=== PATIENT | male | born 1985 | race Caucasian/White ===

== ENCOUNTER 2019-12-14 12:13 | Emergency (ER) | payer SELFPAY ==
[2019-12-14] MEDS ORDERED: KETOROLAC TROMETHAMINE INJ 30 MG/ML VIAL IM ONE (12:32)
[2019-12-14] MEDS ORDERED: CYCLOBENZAPRINE HCL 10 MG TAB PO ONE (12:32)
[2019-12-14 12:33] VITALS: O2SAT 97
[2019-12-14] MEDS ORDERED: predniSONE 20 MG TAB PO ONE (12:33)
--- NOTE | 2019-12-14 13:07 | ED.PDOC ---
History of Present Illness - General Chief Complaint: Back Pain or Injury Stated Complaint: Lower mid back pain Time Seen by Provider: 12/14/19 12:14 Source: patient Exam Limitations: no limitations - History of Present Illness Initial Comments: The patient is a 34-year-old male presented emergency room secondary toAcute onset low back pain starting this morning after he bent over to pick something up. He was not picking up anything heavy. He did not fall. He has had this problem once in the past. No incontinence. No loss of sensation or strength. Pain is adjacent more to the right of L4-L5. There is obvious palpable muscle spasm. No obvious step-off. No evidence of trauma. No evidence of any new deformity. Timing/Duration: 4-6 hours Severity: severe Improving Factors: immobilization Worsening Factors: movement Associated Symptoms: denies symptoms Allergies/Adverse Reactions: Allergies NO KNOWN ALLERGY Allergy (Verified 12/14/19 12:33) Home Medications: Ambulatory Orders Cyclobenzaprine HCl [Flexeril] 10 mg PO TID PRN #20 tab 12/14/19 predniSONE [Prednisone] 20 mg PO DAILY #5 tab 12/14/19 Review of Systems - Review of Systems Constitutional: States: no symptoms reported EENTM: States: no symptoms reported Respiratory: States: no symptoms reported Cardiology: States: no symptoms reported Gastrointestinal/Abdominal: States: no symptoms reported Genitourinary: States: no symptoms reported Musculoskeletal: States: back pain Skin: States: no symptoms reported Neurological: States: no symptoms reported Endocrine: States: no symptoms reported All other Systems: No Change from Baseline Past Medical History (General) - Patient Medical History Hx Stroke: No Hx Dementia: No Hx of COPD: No Hx Congestive Heart Failure: No Hx Hypertension: No Hx Diabetes: No Hx Cancer: No Surgical History: no surgical history - Social History Hx Tobacco Use: Yes Hx Alcohol Use: Yes Hx Substance Use: No Hx Substance Use Treatment: No Hx Depression: No - Female History Patient is a Female of Child Bearing Age (10 -59 yrs old): No Patient : No Family Medical History - Family History Mother Family History: Unknown Physical Exam - Physical Exam General Appearance: Alert, No apparent distress Eye Exam: bilateral normal Ears, Nose, Throat: hearing grossly normal Neck: full range of motion, supple Respiratory: no respiratory distress, no accessory muscle use Cardiovascular/Chest: normal peripheral pulses, no edema, other - Regular rate Peripheral Pulses: radial,right: 2+, radial,left: 2+ Gastrointestinal/Abdominal: soft - Morbidly obese Rectal Exam: deferred Back Exam: muscle spasm, other - See history of present illness Extremity: non-tender, normal inspection, no pedal edema, normal capillary refill Neurologic: inspector outside steam distribution II-XII nml as tested, alert, normal mood/affect, oriented x 3 Skin Exam: normal color Comments: Vital Signs - 24 hr 12/14/19 12/14/19 12:15 12:28 Temperature 96.9 F L Pulse Rate [ 82 82 Pulse ox] Respiratory 16 16 Rate Blood Pressure 163/94 [R brachail] O2 Sat by Pulse 97 Oximetry Progress - Progress Progress: 12/14/19 13:07 The patient is a 34-year-old male presenting to emergency room secondary to acute onset low back pain. He has had low back pain before in the past. X-ray shows no evidence of any acute pathology. 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 The patient needs to do stretching exercises as much as he can tolerate. Topical heat in the form of a heat pad, icy hot or Biofreeze may also prove beneficial. In the long-term, weight loss will help reduce low back pain issues. Additionally exercises that strengthen the muscles in front of the spine can help reduce back pain in the long-term. Exercises such as rowing, swimming or bicycling will help with this. In the short-term the patient is going to be written for Flexeril as a muscle relaxer take for the next few days as well as a 5-day course of oral prednisone to reduce inflammation. He can take [id number] Aleve 400 mg twice daily for the next week with food as well. ER warnings are given. If he is failing to improve significantly in the next few days then he can see a chiropractor. medhat amanda [phone] - Results/Orders Results/Orders: Lumbar series failed to show any acute pathology. Departure - Departure Clinical Impression: Low back pain Qualifiers: Chronicity: acute Back pain laterality: right Sciatica presence: without sciatica Qualified Code(s): M54.5 - Low back pain Disposition: Discharge to Home or Self Care Condition: Fair Departure Forms: ED Discharge - Pt. Copy, Patient Portal Self Enrollment Instructions: DI for Low Back Pain, DI for Back Spasm Diet: low fat, low cholesterol Activity: increase activity as tolerated Prescriptions: Cyclobenzaprine HCl [Flexeril] 10 mg PO TID PRN #20 tab PRN Reason: Muscle Spasms predniSONE [Prednisone] 20 mg PO DAILY #5 tab Home Medications: Ambulatory Orders Cyclobenzaprine HCl [Flexeril] 10 mg PO TID PRN #20 tab 12/14/19 predniSONE [Prednisone] 20 mg PO DAILY #5 tab 12/14/19 Additional Instructions: The patient is a 34-year-old male presenting to emergency room secondary to acute onset low back pain. He has had low back pain before in the past. X-ray shows no evidence of any acute pathology. 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 The patient needs to do stretching exercises as much as he can tolerate. Topical heat in the form of a heat pad, icy hot or Biofreeze may also prove beneficial. In the long-term, weight loss will help reduce low back pain issues. Additionally exercises that strengthen the muscles in front of the spine can help reduce back pain in the long-term. Exercises such as rowing, swimming or bicycling will help with this. In the short-term the patient is going to be written for Flexeril as a muscle relaxer take for the next few days as well as a 5-day course of oral prednisone to reduce inflammation. He can take [id number] Aleve 400 mg twice daily for the next week with food as well. ER warnings are given. If he is failing to improve significantly in the next few days then he can see a chiropractor.
--- NOTE | 2019-12-14 13:41 | RAD ---
EXAM DESCRIPTION: XR Lumbar Spine 3 Views CLINICAL HISTORY: 34 years Male, acute pain after bending COMPARISON: None. FINDINGS: There is no evidence of acute fracture or dislocation or destructive bony lesion in the lumbar spine. Questionable minimal developmental anterior vertebral wedging of T12. Lumbar vertebral body and disc space heights and alignment appear fairly well maintained as visualized, with note of straightening of the usual lordosis. The L5-S1 interspace is not well profiled, and minimal narrowing at that level is difficult to exclude. There may be attempted short first lumbar rib formation on the left. IMPRESSION: No evidence of acute osseous injury involving the lumbar spine. Electronically signed by: Jefe Davis MD 12/14/2019 1:39 PM CDT
[2019-12-14 13:58] VITALS: BP 141/99; TEMP 98.6
== END 2019-12-14 14:07 | disposition home or self-care (01) ==
LOC: ER 12:13
DX: M54.41 Lumbago with sciatica, right side (principal); Z87.891 Personal history of nicotine dependence
CPT/HCPCS: 72100; J1885; J7512